=== PATIENT | female | born 1985 ===

== ENCOUNTER 2023-07-28 05:25 | Inpatient (IN) | payer BC ==
[~2023-07-28] VITALS: Ht 175.3 cm; Wt 84.1 kg
[2023-07-28] VITALS (28 sets, daily range): BP systolic 90–114; BP diastolic 50–83
[2023-07-28] MEDS ORDERED: Citric Acid/Sodium Citrate 30 ML BTL PO SCH (05:55)
[2023-07-28] MEDS ORDERED: Lactated Ringer's 1,000 ML IV SCH ×3 (05:55→08:50)
[2023-07-28] MEDS ORDERED: Metoclopramide HCl 5MG / ML 2ML Vial IV SCH (05:55)
[2023-07-28] MEDS ORDERED: CefOXitin Sodium 2,000 MG in NS 50 ML IV ONE (06:00)
[2023-07-28 06:10] LABS: BASOPHILS ABSOLUTE AUTO 0.05 K/mm3 (0.00-0.23); BASOPHILS PERCENT AUTO 0 % (0-2); EOSINOPHILS ABSOLUTE AUTO 0.21 K/mm3 (0.00-0.68); EOSINOPHILS PERCENT AUTO 2 % (0-6); Hematocrit 42.7 % (33.0-51.0); Hemoglobin 14.3 g/dL (11.5-16.0); IMMATURE GRAN ABSOLUTE AUTO 0.06 K/mm3 (0.00-0.10); IMMATURE GRAN PERCENT AUTO 1 % (0-1); LYMPHOCYTES ABSOLUTE AUTO 3.09 K/mm3 (0.84-5.20); LYMPHOCYTES PERCENT AUTO 26 % (21-46); MONOCYTES ABSOLUTE AUTO 0.85 K/mm3 (0.16-1.47); MONOCYTES PERCENT AUTO 7 % (4-13); Mean Corpuscular HGB 30.6 pg (26.0-34.0); Mean Corpuscular HGB Conc 33.5 g/dL (31.5-36.5); Mean Corpuscular Volume 91 fL (80-100); Mean Platelet Volume 10.9 fL (9.1-12.4); NEUTROPHILS ABSOLUTE AUTO 7.62 K/mm3 (1.96-9.15); NEUTROPHILS PERCENT AUTO 64 % (41-73); Platelet Count 250 K/mm3 (150-400); RDW Coefficient Variation 13.2 % (11.7-14.2); Red Blood Cell Count 4.67 M/mm3 (3.80-5.20); White Blood Cell Count 11.88 K/mm3 (4.00-11.30)
[2023-07-28] MEDS ORDERED: PRENATAL TABLE1 EAC2 (06:29)
[2023-07-28] MEDS ORDERED: Ondansetron HCl 2 MG / ML 2ML Vial IV PRN ×2 (07:25→08:45)
[2023-07-28] MEDS ORDERED: Albuterol 2.5 MG/3 ML VIAL INH PRN (07:25)
[2023-07-28] MEDS ORDERED: FentaNYL Citrate 50 MCG/ML 2 ML Injection IV PRN (07:25)
[2023-07-28] MEDS ORDERED: HYDROmorphone HCl/Pf 1MG SYR IV PRN (07:25)
[2023-07-28] MEDS ORDERED: FentaNYL Citrate 50 MCG/ML 2 ML Injection ONE (07:30)
[2023-07-28] MEDS ORDERED: Oxytocin 10 Unit / ML Vial ONE (07:56)
[2023-07-28] MEDS ORDERED: Ketorolac Tromethamine 30mg Vial ONE (08:11)
--- NOTE | 2023-07-28 08:14 | NUR ---
07/28/23 0814 Minda Sheppard VIABLE FEMALE DELIVERED VIA REPEAT CS 0802. 9/9 APGARS. NO GASES NEEDED PER DR PONCE ORDERS. CORD BLOOD SENT WITH BABY RN AMI.HEAD MEASURED 14' CHEST 13,75 INCHES AND 21 INCHES LONG. 3370 GRAMSL. 7 POUNDS 4 OUNCES. SEE MD POST OP NOTE FOR OPERATIVE DETAILS. SKIN TO SKIN WITH MOM
[2023-07-28] MEDS ORDERED: Simethicone 80 MG Chew PO PRN (08:40)
[2023-07-28] MEDS ORDERED: DiphenhydrAMINE HCL 25 MG Cap PO PRN (08:40)
[2023-07-28] MEDS ORDERED: Lanolin Cream TOP PRN (08:45)
[2023-07-28] MEDS ORDERED: OxyCODONE 5 mg/Acetamin 325 mg TABLET PO PRN (08:45)
[2023-07-28] MEDS ORDERED: Misoprostol 200 MCG Tab PR PRN (08:45)
[2023-07-28] MEDS ORDERED: OxyCODONE HCL 5 MG TAB PO PRN (08:45)
[2023-07-28] MEDS ORDERED: Acetaminophen 500 MG Tab PO PRN (08:45)
[2023-07-28] MEDS ORDERED: Methylergonovine Maleate 0.2 MG Tab PO PRN (08:50)
[2023-07-28] MEDS ORDERED: LR Oxytocin 20 Units 1,000 ML IV SCH (08:50)
[2023-07-28] MEDS ORDERED: Sertraline HCl 50 MG Tab PO SCH (09:00)
[2023-07-28] MEDS ORDERED: Ketorolac Tromethamine 30mg Vial IV SCH (09:00)
[2023-07-28] MEDS ORDERED: Prenatal Vit/FE Fumarate/FA 1 Tab PO SCH (09:00)
[2023-07-28] MEDS ORDERED: Docusate Sodium 100 MG Cap PO SCH (09:00)
[2023-07-28] MEDS ORDERED: Ketorolac Tromethamine 30mg Vial IV PRN (11:05)
[2023-07-28] MEDS ORDERED: Ibuprofen 400 MG Tab PO SCH (16:00)
[2023-07-29] VITALS (7 sets, daily range): BP systolic 102–109; BP diastolic 55–63
[2023-07-29 06:38] LABS: BASOPHILS ABSOLUTE AUTO 0.04 K/mm3 (0.00-0.23); BASOPHILS PERCENT AUTO 0 % (0-2); EOSINOPHILS ABSOLUTE AUTO 0.22 K/mm3 (0.00-0.68); EOSINOPHILS PERCENT AUTO 2 % (0-6); Hematocrit 33.6 % (33.0-51.0); Hemoglobin 11.3 g/dL (11.5-16.0); IMMATURE GRAN ABSOLUTE AUTO 0.03 K/mm3 (0.00-0.10); IMMATURE GRAN PERCENT AUTO 0 % (0-1); LYMPHOCYTES PERCENT AUTO 23 % (21-46); MONOCYTES ABSOLUTE AUTO 0.78 K/mm3 (0.16-1.47); MONOCYTES PERCENT AUTO 8 % (4-13); Mean Corpuscular HGB Conc 33.6 g/dL (31.5-36.5); Mean Corpuscular Volume 92 fL (80-100); Mean Platelet Volume 10.1 fL (9.1-12.4); NEUTROPHILS ABSOLUTE AUTO 6.71 K/mm3 (1.96-9.15); NEUTROPHILS PERCENT AUTO 67 % (41-73); Platelet Count 197 K/mm3 (150-400); RDW Coefficient Variation 13.3 % (11.7-14.2); Red Blood Cell Count 3.64 M/mm3 (3.80-5.20); White Blood Cell Count 10.08 K/mm3 (4.00-11.30)
[2023-07-29] MEDS ORDERED: Ibuprofen 400 MG Tab PO PRN (19:20)
[2023-07-30 03:16] VITALS: BP 104/63
[2023-07-30 07:32] VITALS: BP 104/64
[2023-07-30] MEDS ORDERED: IBU800 M1 PO (08:06)
[2023-07-30] MEDS ORDERED: DOCU100 PO (08:06)
[2023-07-30] MEDS ORDERED: Percocet 5-3251 EACH PO (08:06)
[2023-07-30] MEDS ORDERED: SERT25 PO (08:07)
[2023-07-30 10:53] VITALS: BP 120/58
--- NOTE | 2023-07-30 12:30 | NUR ---
parents given written and verbal dc instructions. will follow up monday at 2 pm scripts filled and pt doing well. bands matched and discharged home with and secure in [facility].
== END 2023-07-30 11:45 | disposition home or self-care (01) | DRG 788 ==
LOC: BC 05:32 → PRE IP 07:30 → BC 19:30
PROVIDERS: ADMIT Obstetrics & Gynecology
PROC: 10D00Z1 Extraction of Products of Conception, Low, Open Approach (ICD-10-PCS; principal; 2023-07-28 07:30)
DX: O34.211 Maternal care for low transverse scar from previous cesarean delivery (principal); Z3A.39 39 weeks gestation of pregnancy; Z37.0 Single live birth
CPT/HCPCS: 36415; 85025; 86850; 86900; 86901; A9270; J0694; J1885; J2590; J2765; J3010; J7120

== ENCOUNTER 2023-08-31 21:10 | Emergency (ER) | payer BC ==
[~2023-08-31] VITALS: Ht 175.3 cm; Wt 72.6 kg
[~2023-08-31 21:10] MED LIST: DOCU100 PO; IBU800 M1 PO; PRENATAL TABLE1 EAC2; Percocet 5-3251 EACH PO; SERT25 PO
[2023-08-31 21:15] VITALS: BP 100/81
[2023-08-31] MEDS ORDERED: CEPH500 PO (21:45)
== END 2023-08-31 21:45 | disposition home or self-care (01) ==
LOC: ER 21:10
DX: Z39.2 Encounter for routine postpartum follow-up (principal); Z79.899 Other long term (current) drug therapy
CPT/HCPCS: 99283

== ENCOUNTER → 2024-06-21 | Outpatient (CLI) | payer BC ==
[~2024-06-21] MED LIST changes: +CEPH500 PO
[2024-06-24 16:49] LABS: APTIMA MEDIA TYPE Urine; C. TRACHOMATIS BY TMA Negative (Negative); N. GONORRHOEAE BY TMA Negative (Negative); SPECIMEN SOURCE Urine
== END ==
LOC: LAB SHORT 13:43 → LAB 13:43
PROVIDERS: Obstetrics & Gynecology
DX: Z34.81 Encounter for supervision of other normal pregnancy, first trimester (principal)
CPT/HCPCS: 87491; 87591